=== PATIENT | female | born 1950 | race Caucasian/White ===

== ENCOUNTER → 2024-08-20 13:33 | Outpatient (CLI) | payer MEDICARE, OTHER, SELFPAY ==
[2024-08-20 14:06] LABS: Add Manual Diff / Slide Review NO; Basophils Absolute Auto 0 /uL (0-100); Basophils Percent Auto 0.8 % (0-2); Eosinophils Absolute Auto 300 /uL (0-450); Eosinophils Percent Auto 5.9 % (2-4); Hematocrit 44.8 % (36-46); Hemoglobin 15.1 g/dL (12.0-16.0); Lymphocytes Absolute Auto 1300 /uL (1100-4500); Lymphocytes Percent Auto 29.9 % (25-40); Mean Corpuscular HGB Conc 33.6 % (30-36); Mean Corpuscular Hemoglobin 31.4 PG (26-34); Mean Corpuscular Volume 93.3 fL (80-100); Monocytes Absolute Auto 400 /uL (0-900); Monocytes Percent Auto 7.8 % (3-14); Neutrophils Absolute Auto 2500 /uL (1500-7000); Neutrophils Percent Auto 55.6 % (50-75); Platelet Count 209 X10^3/uL (150-400); Red Cell Distribution Width 13.1 % (11.6-14.8); White Blood Cell Count 4.5 X10^3/uL (4.5-11.0)
[2024-08-24 02:35] LABS: Alder IgE 0.76 kU/L (Class II); Alternaria alternata IgE <0.10 kU/L (Class 0); Aspergillus fumigatus IgE <0.10 kU/L (Class 0); Box Elder IgE 0.77 kU/L (Class II); Cat Dander IgE <0.10 kU/L (Class 0); Cladosporium herbarum IgE <0.10 kU/L (Class 0); Cockroach IgE 0.65 kU/L (Class II); Cottonwood IgE 0.74 kU/L (Class II); D farinae IgE 0.19 kU/L (Class 0/I); D pteronyssinus IgE 0.12 kU/L (Class 0/I); Dog Dander IgE 0.12 kU/L (Class 0/I); Elm Tree IgE 0.82 kU/L (Class II); Immunoglobulin E 18 IU/mL (6-495); Mountain Cedar IgE 0.67 kU/L (Class II); Mouse Urine Proteins IgE <0.10 kU/L (Class 0); Nettle IgE 0.64 kU/L (Class II); Oak Tree IgE 0.74 kU/L (Class II); Penicillium chrysogen IgE <0.10 kU/L (Class 0); Pigweed, Common IgE 0.81 kU/L (Class II); Ragweed, Short 0.81 kU/L (Class II); Sheep Sorrel IgE 0.84 kU/L (Class II); Silver Birch IgE 0.76 kU/L (Class II); Timothy Grass IgE 0.78 kU/L (Class II); Walnut Allery IgE 0.82 kU/L (Class II); White ash IgE 0.86 kU/L (Class II)
== END ==
PROVIDERS: Referring Provider Student in an Organized Health Care Education/Training Program; Visit Provider Student in an Organized Health Care Education/Training Program
DX: J45.909 Unspecified asthma, uncomplicated (principal); F17.210 Nicotine dependence, cigarettes, uncomplicated; J98.8 Other specified respiratory disorders; R94.2 Abnormal results of pulmonary function studies
CPT/HCPCS: 36415; 82785; 85025; 86003; 94060; 94726; 94729